=== PATIENT | male | born 1965 | race Caucasian/White ===

== ENCOUNTER 2021-03-15 18:48 | Emergency (ER) | payer MEDICAID, OTHER ==
[~2021-03-15] VITALS: Ht 180.3 cm; Wt 90.8 kg
[2021-03-15 20:48] LABS: BASOPHILS # (AUTO) 0.1 X10'3 (0-0.2); EOSINOPHILS # (AUTO) 0.3 X10'3 (0-0.9); EOSINOPHILS % (AUTO) 3.3 % (0-6); HEMATOCRIT 27.6 % (42.0-52.0); HEMOGLOBIN 9.5 g/dl (14.0-17.9); LYMPHOCYTES # (AUTO) 1.7 X10'3 (1.1-4.8); LYMPHOCYTES % (AUTO) 20.4 % (21-51); MEAN CORPUSCULAR HEMOGLOBIN 32.3 PG (27.0-31.0); MEAN CORPUSCULAR HGB CONC 34.2 g/dL (33.0-36.5); MEAN CORPUSCULAR VOLUME 94.6 FL (78-98); MEAN PLATELET VOLUME 9.1 FL (7.4-10.4); MONOCYTES # (AUTO) 0.6 X10'3 (0-0.9); MONOCYTES % (AUTO) 7.6 % (2-12); NEUTROPHILS # (AUTO) 5.5 X10'3 (1.8-7.7); NEUTROPHILS % (AUTO) 67.7 % (42-75); PLATELET COUNT 260 X10'3 (140-440); RED BLOOD COUNT 2.92 X10'6 (4.70-6.10); RED CELL DISTRIBUTION WIDTH 12.8 % (11.5-14.5); WHITE BLOOD COUNT 8.2 X10'3 (4.5-11.0)
[2021-03-15 21:11] LABS: ALANINE AMINOTRANSFERASE 41 U/L (12-78); ALBUMIN 2.9 G/DL (3.4-5.0); ALBUMIN/GLOBULIN RATIO 0.8 (1.1-1.5); ALKALINE PHOSPHATASE 63 IU/L (46-116); ANION GAP 9 (8-16); ASPARTATE AMINO TRANSFERASE 26 U/L (10-37); BILIRUBIN,TOTAL 0.7 MG/DL (0.1-1.0); BLOOD UREA NITROGEN 17 MG/DL (7-18); BUN/CREATININE RATIO 14.4 (5.4-32.0); CHLORIDE 105 MMOL/L (99-107); CREATININE 1.18 MG/DL (0.60-1.10); GLUCOSE 103 MG/DL (70-104); MAGNESIUM 2.3 MG/DL (1.5-2.4); POTASSIUM 3.5 MMOL/L (3.5-5.1); SODIUM 142 MMOL/L (135-145); TOTAL CARBON DIOXIDE 27.9 MMOL/L (24-32); TOTAL PROTEIN 6.4 G/DL (6.4-8.2); eGFR 64 ML/MIN
[2021-03-15 21:20] LABS: CLARITY,URINE CLEAR (Clear); COLOR,URINE YELLOW (Yellow); GLUCOSE, URINE NEGATIVE (Neg); KETONES,URINE NEGATIVE (Neg); LEUKOCYTE ESTERASE ,URINE NEGATIVE (Neg); NITRITES, URINE NEGATIVE (Neg); OCCULT BLOOD,URINE NEGATIVE (Neg); PROTEIN,URINE TRACE mg/dl (Neg); UA COLLECTION TYPE CLN CATCH MIDSTREAM; UROBILINOGEN,URINE 0.2 E.U/dL (0.2-1.0)
[2021-03-15 21:32] LABS: BACTERIA,URINE NONE SEEN /HPF (Neg); HYALINE CASTS 0-3 /LPF (NEGATIVE); MUCUS STRANDS MANY /LPF (Neg); RBC,URINE NONE SEEN /HPF (0-2); SQUAMOUS EPITHELIAL CELL,UR FEW /LPF (FEW); WBC,URINE 0-4 /HPF (0-4)
[2021-03-15] MEDS ORDERED: ampicillin/sulbac 3gm/NS 100ml 100 ML IV STA (21:36)
[2021-03-15] MEDS ORDERED: probenecid 500mg tablet PO ONE (21:40)
[2021-03-15] MEDS ORDERED: DOXY100C43 PO (21:43)
[2021-03-15] MEDS ORDERED: APIX5TAB3 PO (21:43)
--- NOTE | 2021-03-15 22:25 | NUR ---
Dr. Toddfs at bedside explaining plan of care in detail to patient and his daughter and they have an opportunity to ask him all of their questions. Wound redressed by RN.
[2021-03-15 22:26] VITALS: BP 129/76
--- NOTE | 2021-03-15 22:37 | NUR ---
Per oncoming MD Rodriguez, Eliquis to be obtained by prescription, not given here.
== END 2021-03-15 23:00 | disposition home or self-care (01) ==
LOC: ER 18:49
DX: R60.0 Localized edema (principal); M79.89 Other specified soft tissue disorders; R05 Cough; Z87.442 Personal history of urinary calculi; Z98.890 Other specified postprocedural states; Z79.2 Long term (current) use of antibiotics; Z79.899 Other long term (current) drug therapy
CPT/HCPCS: 36415; 80053; 81001; 83735; 84145; 85025; 96365; 99284; J0295

== ENCOUNTER 2021-03-18 10:23 | Emergency (ER) | payer MEDICAID ==
[~2021-03-18] VITALS: Ht 180.3 cm; Wt 89.9 kg
[~2021-03-18 10:23] MED LIST: APIX5TAB3 PO; DOXY100C43 PO
[2021-03-18 10:30] VITALS: BP 125/68
--- NOTE | 2021-03-18 13:10 | NUR ---
VASC AT BEDSIDE DOING EXAM
--- NOTE | 2021-03-18 14:18 | NUR ---
PER VERBAL ORDER FROM DR LALA, ALEX AHMADIE APPLIED NOW AND HIP WOUND REDRESSED BY TECH, PT TOLERATED WELL
[2021-03-18] MEDS ORDERED: HYDR-3972 PO (14:27)
== END 2021-03-18 14:36 | disposition home or self-care (01) ==
LOC: ER 10:23
DX: T84.84XA Pain due to internal orthopedic prosthetic devices, implants and grafts, initial encounter (principal); M79.661 Pain in right lower leg; R22.41 Localized swelling, mass and lump, right lower limb; Z87.442 Personal history of urinary calculi; Z98.890 Other specified postprocedural states; Z96.641 Presence of right artificial hip joint; Z79.899 Other long term (current) drug therapy
CPT/HCPCS: 93971; 99284